=== PATIENT | female | born 1965 | race Caucasian/White ===

== ENCOUNTER → 2019-11-13 | Outpatient (CLI) | payer BC ==
[2019-11-13 13:45] VITALS: BP 120/69; PULSE 82; RESP 16; TEMP 98; BMI 44.8
--- NOTE | 2019-11-13 15:24 | P.BASOAP ---
Subjective Progress Note Date: 11/13/19 Principal diagnosis: Morbid obesity Patient presents for routine visit post sleeve gastrectomy. Patient had her lap band placed over 15 years ago in her gastric sleeve performed May 2015. Since her last visit at [facility] patient had 25 pound weight loss. Patient states that she started taking Vyvanse for the purpose of medical weight loss with good control of her appetite. Last seen when she had upper and lower endoscopy May of last year. Findings of mild gastritis with a normal colon at that time. Doing well currently. No GERD. Still has sleep apnea. Still eating small volumes of food. Objective - Vital Signs Vital signs: Vital Signs Temp 98 F 11/13/19 13:41 Pulse 82 11/13/19 13:41 Resp 16 11/13/19 13:41 BP 120/69 11/13/19 13:41 Pulse Ox Intake & Output 11/12/19 11/13/19 11/13/19 18:59 06:59 18:59 Weight 122.158 kg - Exam Abdomen: Soft, nontender, nondistended Assessment/Plan (1) Morbid obesity Narrative/Plan: Patient overall doing well. Certainly improved weight loss with the Vyvanse prescription. We'll review the labs drawn last fall. Anticipate follow-up 1 year and we'll check annual labs at that time. Continue dietary and exercise regimen. Plan: Date: 11/13/19 Initial Weight: 150.593 kg Initial BMI: 55.2 Current Weight: 122.158 kg Current BMI: 44.8 Type of Surgery: Total Volume in Band: Previous Volume: Volume Removed: Volume Added: Band Size:
== END | disposition home or self-care (01) ==
LOC: BARWHC3 13:26
PROVIDERS: ATTEND Surgery
DX: Z48.815 Encounter for surgical aftercare following surgery on the digestive system (principal); E66.01 Morbid (severe) obesity due to excess calories; Z68.41 Body mass index [BMI] 40.0-44.9, adult
CPT/HCPCS: 99211